=== PATIENT | female | born 1975 | race Caucasian/White ===

== ENCOUNTER 2017-07-28 05:41 | Day surgery (SDC) | payer OTHER ==
[2017-07-28] MEDS ORDERED: GABAPENTIN 300 MG CAP PO ONE (06:19)
[2017-07-28] MEDS ORDERED: ceFAZolin 2 GM/DEXTROSE 100 ML IV ONE (06:19)
[2017-07-28] MEDS ORDERED: ACETAMINOPHEN 500 MG TAB PO ONE (06:19)
[2017-07-28] MEDS ORDERED: BUPIVACAINE 0.25% 30 ML SDV ONE (06:32)
[2017-07-28] MEDS ORDERED: EPINEPHrine 1 MG/ML INJ ONE (06:32)
[2017-07-28] MEDS ORDERED: BACITRACIN 50,000 UNITS/10 ML SYR IRR ONE (06:33)
[2017-07-28] MEDS ORDERED: CHLORHEXIDINE GLUC HIBICLENS 118 ML BTL TP ONE (06:33)
[2017-07-28] MEDS ORDERED: THROMBIN (BOVINE) 5,000 UNIT VIAL TP ONE (06:34)
[2017-07-28] MEDS ORDERED: MIDAZOLAM 2 MG/2 ML VIAL IVP ONE (06:47)
[2017-07-28] MEDS ORDERED: ONDANSETRON 4 MG/2 ML VIAL IVP PRN ×2 (06:49→09:00)
[2017-07-28] MEDS ORDERED: NALOXONE HCL 0.4 MG/ML INJ IVP PRN (06:49)
[2017-07-28] MEDS ORDERED: PROMETHAZINE HCL 25 MG/ML INJ IVP PRN (06:49)
[2017-07-28] MEDS ORDERED: oxyCODONE IR 5 MG TAB PO PRN (06:49)
[2017-07-28] MEDS ORDERED: ALBUTEROL 3 ML DEYVIAL IH PRN (06:49)
[2017-07-28] MEDS ORDERED: HYDROCODONE/APAP 5/325 TAB PO PRN (06:49)
[2017-07-28] MEDS ORDERED: DEXAMETHASONE 4 MG/ML VIAL IVP PRN (06:49)
--- NOTE | 2017-07-28 06:49 | PDANEPAE ---
ANE History of Present Illness here for LOIS ANE Past Medical History - Cardiovascular History Hx Hypertension: No Hx Arrhythmias: Yes Hx Chest Pain: No Hx Coronary Artery / Peripheral Vascular Disease: No Hx CHF / Valvular Disease: No Hx Palpitations: No Cardiovascular History Comment: heart murmur. hx of mitral valve prolapse but was told she doesn't meet those guidelines anymore- no symptoms currently. was seeing special education tutor in her early 20's - Pulmonary History Hx COPD: No Hx Asthma/Reactive Airway Disease: No Hx Recent Upper Respiratory Infection: No Hx Oxygen in Use at Home: No Hx Sleep Apnea: No Sleep Apnea Screening Result - Last Documented: Negative - Neurologic History Hx Cerebrovascular Accident: No Hx Seizures: No Hx Dementia: No Neurologic History Comment: previous l5-s1 lois. tingling in left leg when walking occ right leg. some numbness in left foot - Endocrine History Hx Diabetes: No Hypothyroid: No Hyperthyroid: No Obesity: no - Renal History Hx Renal Disorders: No - Liver History Hx Hepatic Disorders: No - Neurological & Psychiatric Hx Hx Neurological and Psychiatric Disorders: No - Cancer History Hx Cancer: No - Congenital Disorder History Hx Congenital Disorders: No - GI History Hx Gastrointestinal Disorders: No - Other Health History Other Health History: none - Chronic Pain History Chronic Pain: Yes (down left leg and behind right thigh) - Surgical History Prior Surgeries: 12/2015 previous lois l5-s1. 04/2009 ovarian cyst removed ANE Review of Systems Review of systems is: negative Review of Systems: - Exercise capacity Exercise capacity: >=4 METS METS (RN): 5 METS ANE Patient History - Allergies Allergies/Adverse Reactions: No Known Allergies Allergy (Verified 07/23/17 14:23) - Home Medications Home Medications: Benadryl 07/23/17 [Last Taken Unknown] Herbals/Supplements -Info Only 07/23/17 [Last Taken 07/22/17] Tylenol 07/23/17 [Last Taken Unknown] - Smoking Hx Smoking Status: Never smoked - Family Anes Hx Family Hx Anesthesia Complications: none ANE Labs/Vital Signs - Vital Signs Vital Signs: reviewed preoperatively; see RN documention for details Height: 172.72 cm Weight: 65.771 kg ANE Physical Exam - Airway Neck exam: FROM Mallampati Score: Class 1 - Pulmonary Pulmonary: no respiratory distress - Cardiovascular Cardiovascular: regular rate and rhythym - ASA Status ASA Status: II ANE Anesthesia Plan Anesthesia Plan: general endotracheal anesthesia
[2017-07-28] MEDS ORDERED: PROPOFOL/EMULSION 500 MG/50 ML BOTTLE IV ONE (07:00)
[2017-07-28] MEDS ORDERED: MIDAZOLAM 2 MG/2 ML VIAL ONE (07:03)
[2017-07-28] MEDS ORDERED: fentaNYL 100 MCG/2 ML INJ ONE ×4 (07:07→10:31)
[2017-07-28] MEDS ORDERED: HYDROmorphONE/DILAUDID 1 MG/ML INJ IVP PRN (07:15)
--- NOTE | 2017-07-28 07:20 | PDHPUP ---
History & Physical Update H&P update statement: This history and physical update is based on an assessment of the patient which was completed after admission or registration (within 24 hours), but prior to the surgery/procedure. H&P update: H&P reviewed & patient examined, no change in patient's condition since H&P completed
[2017-07-28] MEDS ORDERED: PROPOFOL 200 MG/20 ML VIAL ONE (08:10)
[2017-07-28] MEDS ORDERED: BUPIVACAINE 0.5% 30 ML SDV ONE (08:15)
[2017-07-28] MEDS ORDERED: OXYCODONE/APAP 5/325 TAB PO PRN (08:49)
[2017-07-28] MEDS ORDERED: METHOCARBAMOL 1,000 MG in NS 50 ML IVP PRN (08:50)
[2017-07-28] MEDS ORDERED: METHOCARBAMOL 750 MG TAB PO PRN (08:50)
--- NOTE | 2017-07-28 09:04 | POSTOPPROG ---
Post Op Note Date of Operation: 07/28/17 Surgeon: Michael Lowery Mohs Surgeon: Virgen Holt PA-C Anesthesia: GET(General Endotracheal) Pre-op Diagnosis: Herniated nucleus pulposis Post-op Diagnosis: same Procedure: L5/S1 minimally invasive microdiscectomy Inf/Abcess present in the surg proc area at time of surgery?: No Depth: Organ Space EBL: Minimal SOAP Progress Note Assessment/Plan: Assessment: Plan: 07/28/17 09:01 S: Patient in PACU. Still waking up from surgery. Stable O: NAD, VSS CN II-XII grossly intact PERRL, EOMI Moving all extremities X 4 BLE 5/5 Sensation intact to lt touch Incision clean,dry, intact, dermabonded A; 42 yo female sp L5/S1 microdiscectomy for herniated disc and radiculopathy P: -Discharge Home with PACU criteria met -Advance diet as tolerated -Activity as tolerated -No bending, lifting, twisting more than 5 pounds -Scripts on chart to go home with -Seen By Dr. Lowery in PACU as well Objective: Vital Signs Temp Pulse Resp BP Pulse Ox 36.5 C 84 12 92/44 L 100 07/28/17 06:50 07/28/17 06:50 07/28/17 08:55 07/28/17 08:51 07/28/17 08:55
[2017-07-28] MEDS: fentaNYL 100 MCG/2 ML INJ IVP PRN ×3 (09:09→10:31)
[2017-07-28] MEDS ORDERED: DIAZEPAM 5 MG/ML 1 ML SYR ONE (09:29)
[2017-07-28] MEDS: DIAZEPAM 5 MG/ML 1 ML SYR IVP PRN ×2 (09:29→09:46)
[2017-07-28] MEDS ORDERED: OXYCODONE/APAP 5/325 TAB ONE (10:08)
--- NOTE | 2017-07-28 10:16 | POSTANESTH ---
Post Anesthetic Evaluation Cardiovascular Status: Normal, Stable Respiratory Status: Normal, Stable Level of Consciousness/Mental Status: Can Participate in Eval Pain Control: Adequate, Prn Tx Ordered Nausea/Vomiting Control: Adequate, Prn Tx Ordered Complications Possibly Related to Anesthesia: None Noted
[2017-07-28 10:47] VITALS: BP 117/84
--- NOTE | 2017-07-28 11:25 | GOP ---
[f rep st] OPERATIVE REPORT DATE OF OPERATION: 07/28/2017 SURGEON: Michael Lowery MD SALT WASHER: Virgen ERVIN. ANESTHESIA: General endotracheal PREOPERATIVE DIAGNOSIS: Severe left S1 radiculopathy. POSTOPERATIVE DIAGNOSIS: Severe left S1 radiculopathy. PROCEDURE PERFORMED: 1. Left L5 hemilaminotomy, medial facetectomy, L5-S1 microdiskectomy. 2. Use of the operative microscope. 3. Stealth stereotactic O-arm navigation for localization of level and hemilaminotomy. FINDINGS: Successful microdiskectomy. SPECIMENS: There were no specimens. ESTIMATED BLOOD LOSS: 25 cc. DESCRIPTION OF PROCEDURE: After informed consent was obtained from the patient, the patient was brou ght to the operating room and a formal time-out was performed, identifying the patient by name, medical record number, and date of . Preoperative antibiotics were given. The endotrache al tube was placed and general endotracheal anesthesia was smoothly induced. All appropriate leads w ere placed for intraoperative neurophysiologic monitoring including somatosensory evoked potentials a nd EMG. The patient was then turned the prone position on the Diaz table. All appropriate pressu re points were padded and checked. The lumbar region was prepped and draped in a normal sterile fash ion. A stab incision was made over the right iliac crest and the percutaneous pin was then placed in to the iliac crest for navigation. An O-arm spin was then obtained showing the relevant anatomy from L3 toS1. This then used to localize the appropriate angle and trajectory toward the L5-S1 disk spac e. The previous skin incision was opened and the muscle fascia was also opened to the left of midlin e. The percutaneous dilators were then placed with navigation over the L5 lamina and an 18 mm x 5 cm quadrant retractor was docked onto the lamina using navigation. The relevant anatomy was localized and the lateral extent of the hemilaminotomy was also localized using navigation with care not to rem ove too much of the facet joint. At this point, the operative microscope was brought on the field an d the remainder of the procedure was performed under high-power magnification. Using a 3 mm aleksandra bur a hemilaminotomy was drilled exposing the yellow ligament below. This was taken up to the insert ion of the yellow ligament superiorly and the yellow ligament was then stripped down exposing the dur a and the nerve root. The nerve root was extremely tense and was tented up along the posterior cookie n of the medial facet joint by the underlying disk. The nerve root was retracted slightly medially a nd the inflammatory tissue surrounding the disk was entered. Two large free fragments of disk were t hen removed from beneath the nerve root and at this point, the nerve root was completely slack. A ne rve hook was then used to feel underneath the nerve root and medially to be sure that there were no f urther disk fragments. The nerve root and dura were completely free and there were no impinging stru ctures beneath. A few small pieces of ligament were removed laterally completely freeing the nerve r oot. At this point, all bleeding was controlled with bipolar electrocautery. The wound was copiousl y irrigated using bacitracin irrigation. A piece of 0.5% Marcaine soaked Gelfoam was placed over the nerve root and left in place for a couple of minutes for postoperative analgesia. At this point, ag ain this Gelfoam was removed. The wound was again copiously irrigated. The retractor was removed an d the muscle fascia was closed using interrupted 0 Vicryl. Deep dermis was closed using interrupted 2-0 Vicryl and the skin was closed using Dermabond. Then 0.25% Marcaine with epinephrine was infiltr ated into the skin and muscle around the incision for postoperative analgesia. The stereotactic fram e was removed and sterile dressings were placed. The patient was awakened in the operating room. Sh e was transferred to the PACU in stable condition. There were no operative complications. I was scr ubbed and present for the entire procedure. All sponge and needle counts were correct at the end of the case. All neurophysiologic monitoring was completely stable throughout the case. BRIEF CLINICAL HISTORY: Christy Goss is a 42-year-old woman who presents with a left S1 radicu lopathy of severe nature. She has failed conservative management including physical therapy, epidura l steroid injections and medical management. She has seen multiple surgeons and we had multiple disc ussions regarding how to proceed, but ultimately had decided to proceed with microdiskectomy. She do es have a history of a right-sided hemilaminotomy at this level for what sounds like cauda equina syn drome when she lived back in [place]. This was several years back. FLUIDS AND URINE OUTPUT: Per the anesthesia record. DRAINS: There were no drains. /[id number]/MODL
== END 2017-07-28 12:02 | disposition home or self-care (01) ==
LOC: FSGY 05:41
PROVIDERS: ATTEND Neurological Surgery
DX: M54.17 Radiculopathy, lumbosacral region (principal); M51.27 Other intervertebral disc displacement, lumbosacral region; M48.07 Spinal stenosis, lumbosacral region
CPT/HCPCS: J0171; J0690; J2250; J2704; J2800; J3010; J3360